=== PATIENT | male | born 1950 | race Hispanic/Latino ===

== ENCOUNTER 2020-01-04 12:20 | Inpatient (IN) | payer OTHER ==
[~2020-01-04] VITALS: Ht 177.8 cm; Wt 98.9 kg
[~2020-01-04 12:20] MED LIST: NORCO 7.5-3251 EACH PO; TYLENOL WITH C1 EACH PO; Z.0.MULTIVITAMINS1 E; Z.0.VITAMIN C500 M1 PO; Z.4.VITAMIN E400 UNI; ZOFRAN ODT4 MG; [UNRECOGNIZED DRUG - OTHER]
--- OUTSIDE RECORDS SUMMARY | 2020-01-04 12:24 | XMS REPORT ---
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 Allergies, Adverse Reactions, Alerts This patient has no known allergies or adverse reactions. Medications This patient has no known medications. Encounters Start Date/Time End Date/Time Encounter Type Admission Type Attending Clinicians Care Facility Care Department Encounter ID 2019-09-16 11:36:00 2019-09-16 11:36:00 Outpatient [id number]
[2020-01-04] MEDS ORDERED: CEFEPIME 1GM/NS 0.9% 50 ML 50 ML IV ONE (12:27)
[2020-01-04] MEDS ORDERED: ONDANSETRON HCL INJ 2MG/ML 2ML 2 MG/ML VIAL IV ONE (12:27)
[2020-01-04] MEDS ORDERED: MORPHINE SULFATE INJ 4 MG/ML INJ 1ML IV ONE (12:27)
[2020-01-04] MEDS ORDERED: SODIUM CHLORIDE 0.9% 1000ML 1,000 ML IV STA ×2 (12:27→13:21)
[2020-01-04 12:57] LABS: BASOPHILS % 0.2 % (0.0-1.0); EOSINOPHILS # (AUTO) 0.2 (0.0-0.4); EOSINOPHILS % 1.3 % (0.0-6.0); HEMATOCRIT 51.4 % (38.2-49.6); HEMOGLOBIN 17.3 g/dL (14.0-18.0); LYMPHOCYTES # (AUTO) 1.7 (1.0-3.2); LYMPHOCYTES % 12.1 % (18.0-39.1); MEAN CORPUSCULAR HEMOGLOBIN 29.8 pg (28-32); MEAN CORPUSCULAR HGB CONC 33.7 g/dL (31-35); MEAN CORPUSCULAR VOLUME 88.6 fL (81-99); MONOCYTES # (AUTO) 0.9 (0.2-0.8); MONOCYTES % 6.1 % (4.4-11.3); NEUTROPHILS # (AUTO) 11.1 (2.1-6.9); NEUTROPHILS % 79.7 % (38.7-80.0); PLATELET COUNT 385 x10e3/uL (140-360); RED CELL DISTRIBUTION WIDTH 13.7 % (11.7-14.4)
[2020-01-04 13:16] LABS: ALANINE AMINOTRANSFERASE 42 IU/L (0-55); ALBUMIN 4.8 g/dL (3.5-5.0); ALBUMIN/GLOBULIN RATIO 1.1 (0.8-2.0); ALKALINE PHOSPHATASE 95 IU/L (40-150); ANION GAP 15.8 mmol/L (8-16); BLOOD UREA NITROGEN 22 mg/dL (7-26); BUN/CREATININE RATIO 14 (6-25); CALCIUM 10.5 mg/dL (8.4-10.2); CARBON DIOXIDE 26 mmol/L (22-29); CHLORIDE 98 mmol/L (98-107); CREATINE KINASE 48 IU/L (30-200); CREATININE, SERUM 1.53 mg/dL (0.72-1.25); EST GLOMERULAR FILTRATION RATE 45 ML/MIN (60-); GLUCOSE 155 mg/dL (74-118); POTASSIUM 3.8 mmol/L (3.5-5.1); SODIUM 136 mmol/L (136-145)
[2020-01-04] MEDS ORDERED: MIDAZOLAM HCL 2 MG/2 ML VIAL ONE (13:57)
[2020-01-04] MEDS ORDERED: FENTANYL CITRATE/PF 100MCG/2 ML INJ ONE (13:57)
[2020-01-04] MEDS ORDERED: MORPHINE SULFATE 2 MG/ML SYR 1ML IV PRN (14:45)
[2020-01-04] MEDS ORDERED: ONDANSETRON HCL INJ 2MG/ML 2ML 2 MG/ML VIAL IV PRN (14:45)
[2020-01-04] MEDS ORDERED: MORPHINE SULFATE INJ 4 MG/ML INJ 1ML IV PRN (15:00)
[2020-01-04] MEDS ORDERED: IOPAMIDOL 370 MG/ML 200 ML INFUS..BTL INJ ONE (15:08)
[2020-01-04] MEDS ORDERED: SODIUM CHLORIDE 0.9% 50ML 50 ML ONE (15:08)
[2020-01-04] MEDS ORDERED: BENZOCAINE/TETRACAINE/BUTAMBEN AERO SPRAY 56 GM CAN TOP ONE (15:15)
[2020-01-04] MEDS: SODIUM CHLORIDE 0.9% 250ML IRRIG IR SCH ×3 (16:06→22:42)
--- NOTE | 2020-01-04 16:37 | Diagnostic Imaging Report ---
EXAM: CT Abdomen and Pelvis WITH contrast INDICATION: Abdominal Pain, query strangulated hernia. COMPARISON: None. TECHNIQUE: Abdomen and pelvis were scanned utilizing a multidetector helical scanner from the lung base to the pubic symphysis after administration of IV contrast. Coronal and sagittal reformations were obtained. Routine protocol was performed. Scan was performed when during portal venous phase. IV CONTRAST: 100 cc of Isovue-370. ORAL CONTRAST: Water COMPLICATIONS: None RADIATION DOSE: Total DLP: (DLP x 0.015 x size factor) mGy*cm Estimated effective dose: (DLP x 0.015 x size factor) mSv CTDIvol has been reviewed. It is below the limits set by the Radiation Protocol Committee (RPC). FINDINGS: LINES and TUBES: None. LOWER THORAX: Coronary atherosclerosis. HEPATOBILIARY: No evidence of focal lesion. No biliary ductal dilation. GALLBLADDER: No radio-opaque stones or sludge. No wall thickening. SPLEEN: No splenomegaly. PANCREAS: No focal masses or ductal dilatation. ADRENALS: No adrenal nodules KIDNEYS/URETERS: Kidneys enhance symmetrically. No evidence of hydronephrosis, solid mass, or stone. Bilateral renal cysts. The largest left renal cyst, measuring up to 3.8 cm demonstrate minimal complexity with punctate calcification of the wall. Subcentimeter left renal hypodensity is too small to characterize, but likely represents a cyst. GI TRACT: There is dilation of proximal small bowel loops, measuring up to 4.7 cm with a transition point within a periumbilical hernia, with a neck, measuring up to 2.6 cm. Small bowel loops within the hernia sac are mildly thickened with mild inflammatory changes. There is decompression of the small bowel beyond the hernia. Some air and stool seen within the colon. PELVIC ORGANS/BLADDER: Calcifications within the prostate. LYMPH NODES: No lymphadenopathy. VESSELS: There is moderate atherosclerotic disease in the aorta and major arterial branches. PERITONEUM / RETROPERITONEUM: No free air or fluid. BONES AND SOFT TISSUES: No acute osseous abnormality. T10 hemangioma. CONCLUSION: High-grade partial small bowel obstruction with a transition point in a umbilical hernia. Mild wall thickening of the jejunum with inflammatory changes within the hernia sac which may represent developing incarceration. No evidence of pneumatosis or free air. The above findings were discussed with Dr. Reese on 01/04/2020 at 1630, who indicated the findings were understood. Signed by: Dr. Samra Díaz MD on 01/04/2020 4:35 PM
--- NOTE | 2020-01-04 17:16 | Diagnostic Imaging Report ---
Exam: KUB -1 view Clinical History: Status post NG tube placement. Comparison: CT abdomen/pelvis 01/04/2020. Findings: Limited portable radiograph. Enteric tube terminates in the stomach, the side-port is near the GE junction. Suggest advancement by approximately 4 cm. Dilated small bowel loops, consistent with small bowel obstruction as noted on same day CT. Contrast is present in the right renal collecting system. Signed by: Dr. Samra Díaz MD on 01/04/2020 5:13 PM
--- NOTE | 2020-01-04 17:31 | NUR ---
Pt now gone to OR for surgery.
[2020-01-04] MEDS ORDERED: CEFAZOLIN SOD 1 GM VIAL ONE (18:05)
[2020-01-04] MEDS ORDERED: BUPIVACAINE 0.25% 30ML SDV INJ ONE (18:45)
[2020-01-04 19:55] VITALS: BP 123/75
[2020-01-04 21:25] VITALS: BP 120/80
--- NOTE | 2020-01-04 21:37 | Operative Report ---
DATE OF PROCEDURE: 01/04/2020 SURGEON: Ervin Rey MD PREOPERATIVE DIAGNOSIS: Incarcerated umbilical hernia. POSTOPERATIVE DIAGNOSIS: Incarcerated umbilical hernia. OPERATIVE PROCEDURE: Repair of incarcerated umbilical hernia. ANESTHESIA: General. INDICATIONS: A 69-year-old male with 3-day history of periumbilical pain and vomiting. CT scan showed incarcerated hernia at the umbilical area. The patient is consented for repair. Attendant risks discussed. PROCEDURE FINDINGS: Incarcerated hernia sac in the umbilical hernia. DESCRIPTION OF PROCEDURE: The patient was brought to the OR and intubated. The abdomen was prepped and draped in sterile fashion. A curvilinear incision was made around the umbilicus, extending down to the subcu tissue. Hernia sac was identified. It was noted to be ischemic. Hernia sac was opened. No incarcerating loops of bowel were encountered. Excess hernia sac was trimmed at the fascial edge with cautery, and the peritoneum was closed with interrupted 2-0 Vicryl. The fascial defect measured approximately 2-3 cm, which was closed in transverse direction with interrupted #0 Prolene stitches. Subcutaneous tissue was then approximated with 3-0 Vicryl and skin was closed with laura. The patient was extubated and transported to recovery room. ESTIMATED BLOOD LOSS: 20 mL. Ervin Rey MD DNL/MODL /[id number]
--- NOTE | 2020-01-04 21:37 | Consultation ---
DATE OF CONSULTATION: 01/04/2020 CHIEF COMPLAINT: Abdominal pain, vomiting. HISTORY OF PRESENT ILLNESS: The patient is a 69-year-old male with a 2-day history of abdominal pain in umbilical area with vomiting. The patient denies fever or diarrhea. The patient has had this hernia for a while, but he has increasing tenderness and vomiting in the last 2 days. PAST MEDICAL HISTORY: Negative for chronic illness. PAST SURGICAL HISTORY: Positive for neck fusions and knee surgery. ALLERGIES: HE IS ALLERGIC TO PENICILLIN, SULFA, AND IBUPROFEN. SOCIAL HABITS: He denies smoking or alcohol abuse. REVIEW OF SYSTEMS: No chest pain, shortness of breath, or cough. PHYSICAL EXAMINATION: VITAL SIGNS: Stable. He is afebrile. GENERAL: He is awake, alert, in moderate discomfort. HEENT: Sclerae nonicteric. NECK: Supple. LUNGS: Clear. HEART: Regular rate and rhythm. ABDOMEN: Soft. There is an incarcerated umbilical hernia, is not reducible, with skin erythema overlying the mass. There is tenderness to palpation. EXTREMITIES: No cyanosis or edema. LABORATORY DATA: White cell count is 14, hemoglobin is 17, platelet count 385. Creatinine of 1.5. Lactic acid is 2.1. CT scan show incarcerated small bowel loops in the umbilical hernia with possible strangulation. ASSESSMENT: Incarcerated umbilical hernia. PLAN: Repair of incarcerated umbilical hernia with possible bowel resection. Attendant risks discussed. Ervin Rey MD DNL/MODL /[id number]
[2020-01-04] MEDS ORDERED: ROSUVASTATIN CAL5 MG PO (21:44)
[2020-01-04] MEDS ORDERED: OMEPRAZOLE40 MG PEG (21:44)
[2020-01-04] MEDS: LACTATED RINGER'S 1,000 ML IV SCH (22:00)
[2020-01-04] MEDS: CEFAZOLIN SOD 1 GM/NS 50ML 50 ML IV SCH (22:00)
[2020-01-05] VITALS (9 sets, daily range): BP systolic 110–127; BP diastolic 59–87
[2020-01-05] MEDS: LACTATED RINGER'S 1,000 ML IV SCH ×3 (02:15→18:31)
[2020-01-05] MEDS: CEFAZOLIN SOD 1 GM/NS 50ML 50 ML IV SCH ×3 (05:34→21:42)
--- NOTE | 2020-01-05 07:54 | NUR ---
Received patient this morning, alert and responsive, no distress, call light within reach, rounds completed, will monitor. Incision to abdomen with dressing in place, no bleeding noted.
[2020-01-05] MEDS: PANTOPRAZOLE 40 MG 10ML VIAL IV SCH (10:17)
--- NOTE | 2020-01-05 10:18 | NUR ---
Patient OOB and ambulating in the room, had a large BM, pains well managed, no N/V will monitor.
--- NOTE | 2020-01-05 10:36 | NUR ---
Call from Dr. Rey and to upgrade diet to full liquid and advance as tolerated.
[2020-01-06] VITALS: BP 121/57
--- NOTE | 2020-01-06 01:00 | NUR ---
TOLERATES THE DIET.AAOX4.AMBULATES.FAMILY MEMBER AT BED SIDE.BED LOCKED AND IN LOWEST POSITION.PHONE AND CALL LIGHT WITHIN REACH.INSTRUCTED O CALL FOR ASSISTANCE NEEDED.
[2020-01-06] MEDS: LACTATED RINGER'S 1,000 ML IV SCH (03:21)
[2020-01-06 04:00] VITALS: BP 110/64
[2020-01-06] MEDS: CEFAZOLIN SOD 1 GM/NS 50ML 50 ML IV SCH (05:56)
[2020-01-06 06:20] LABS: BASOPHILS % 0.3 % (0.0-1.0); EOSINOPHILS # (AUTO) 0.2 (0.0-0.4); EOSINOPHILS % 3.7 % (0.0-6.0); HEMATOCRIT 38.2 % (38.2-49.6); HEMOGLOBIN 12.3 g/dL (14.0-18.0); LYMPHOCYTES # (AUTO) 1.3 (1.0-3.2); LYMPHOCYTES % 21.2 % (18.0-39.1); MEAN CORPUSCULAR HEMOGLOBIN 29.4 pg (28-32); MEAN CORPUSCULAR HGB CONC 32.2 g/dL (31-35); MEAN CORPUSCULAR VOLUME 91.2 fL (81-99); MONOCYTES # (AUTO) 0.6 (0.2-0.8); NEUTROPHILS # (AUTO) 3.8 (2.1-6.9); NEUTROPHILS % 64.1 % (38.7-80.0); PLATELET COUNT 234 x10e3/uL (140-360); RED BLOOD COUNT 4.19 x10e6/uL (4.3-5.7); RED CELL DISTRIBUTION WIDTH 13.5 % (11.7-14.4)
--- NOTE | 2020-01-06 06:30 | NUR ---
CALL PLACED TO REGARDING DIET.RECEIVED NEW ORDERS.
[2020-01-06 06:44] LABS: ANION GAP 11.7 mmol/L (8-16); BLOOD UREA NITROGEN 7 mg/dL (7-26); BUN/CREATININE RATIO 8 (6-25); CALCIUM 8.7 mg/dL (8.4-10.2); CARBON DIOXIDE 27 mmol/L (22-29); CHLORIDE 103 mmol/L (98-107); CREATININE, SERUM 0.83 mg/dL (0.72-1.25); EST GLOMERULAR FILTRATION RATE > 60 ML/MIN (60-); GLUCOSE 102 mg/dL (74-118); POTASSIUM 3.7 mmol/L (3.5-5.1); SODIUM 138 mmol/L (136-145)
--- NOTE | 2020-01-06 07:00 | NUR ---
Bed side shift report given to oncoming rn.stable condition.
--- NOTE | 2020-01-06 07:01 | NUR ---
BEDSIDE SHIFT REPORT RECEIVED FROM MECHANICAL PLANNER RN, PT SITTING UP IN BED, AWAKE, ALERT, ORIENTED X3, NO SIGNS OF DISTRESS. NO COMPLAINTS AT THIS TIME. WILL CONTINUE TO MONITOR.
[2020-01-06 07:22] VITALS: BP 110/64
[2020-01-06 08:00] VITALS: BP 110/64
[2020-01-06] MEDS: PANTOPRAZOLE 40 MG 10ML VIAL IV SCH (10:06)
[2020-01-06] MEDS ORDERED: TYLENOL # 31 EA PO (10:20)
[2020-01-06] MEDS ORDERED: ZOFRAN4 MG PO (10:21)
--- NOTE | 2020-01-06 16:22 | Discharge Summary ---
PRIMARY CARE PHYSICIAN: Dr. Ottoniel Dubon. DELIVERY REP: Dr. Ervin Rey. FINAL DIAGNOSES: 1. Small bowel obstruction secondary to umbilical hernia. 2. Status post umbilical hernia repair. SUMMARY: The patient is a 69-year-old male with umbilical hernia repair with bowel incarceration. No bowel resection is advisable. The patient has umbilical hernia repair. The patient is doing much better. He is stable, ambulatory, eating. The patient will follow up with Dr. Ervin Rey for his postoperative care. The patient is stable, discharged home today. Resume home medication. Tylenol No. 3 p.r.n. and Zofran p.r.n. The patient is to follow up with Dr. Ervin Rey within a week. MD TASH Hawthorne/MODL /[id number]
== END 2020-01-06 11:48 | disposition home or self-care (01) | DRG 355 ==
LOC: ER 12:20 → UNDOADMIN 14:53 → ERHOLD 14:53 → OR 17:28 → MED/SURG 19:05 → OBSVTOIN 19:05
PROVIDERS: ADMIT Internal Medicine; ATTEND Internal Medicine
PROC: 0WQF0ZZ Repair Abdominal Wall, Open Approach (ICD-10-PCS; principal; 2020-01-04 17:45)
DX: K42.0 Umbilical hernia with obstruction, without gangrene (principal); Z88.0 Allergy status to penicillin; Z88.2 Allergy status to sulfonamides; M47.892 Other spondylosis, cervical region; M17.10 Unilateral primary osteoarthritis, unspecified knee
CPT/HCPCS: 36415; 74018; 74177; 80048; 80053; 82550; 82553; 83605; 84484; 85025; 87040; 93005; 99284; J0690; J0692; J2250; J2270; J2405; J3010; J7030; J7121; Q9967